=== PATIENT | female | born 1960 | race Caucasian/White ===

== ENCOUNTER 2017-02-16 18:31 | Emergency (ER) | payer MEDICARE, MEDICAID ==
[~2017-02-16] VITALS: Ht 172.7 cm; Wt 93.6 kg
[~2017-02-16 18:31] MED LIST: CEPHALEXIN500 MG PO; HYDROCHLORO25 MG/TAB PO; PERCOCET 5/325M1 TAB PO; TRAMADOL HCL50 MG PO; VICOPROFEN PO
[2017-02-16 19:32] LABS: HEMATOCRIT 41.3 % (37.0-47.0); HEMOGLOBIN 13.9 g/dl (12.0-16.0); IMMATURE GRANULOCYTES 0.4 % (0.0-1.0); MEAN CELL VOLUME 93.2 fL CALC (80.0-100.0); MEAN CORPUSCULAR HGB 31.4 pG CALC (26.0-32.0); MEAN CORPUSCULAR HGB CONC 33.7 g/L CALC (32.0-36.0); NEUT# 9.41 thou/uL (2.00-7.15); RED BLOOD COUNT 4.43 mill/uL (4.20-5.60); RED CELL DISTRI WIDTH 12.4 % (11.5-15.5)
[2017-02-16 19:40] LABS: ALBUMIN 4.5 g/dL (3.2-5.0); ALKALINE PHOSPHATASE 231 u/l (38-126); AMYLASE 47 u/l (30-110); ANION GAP 13 (6-22 (CALC)); BILIRUBIN, TOTAL 5.5 mg/dL (0.0-1.4); BUN 15 mg/dL (7-17); BUN/CREATININE RATIO 18 (12-20 (CALC)); CALCIUM 9.7 mg/dL (8.4-10.2); CARBON DIOXIDE 31 mmol/l (22-30); CHLORIDE 97 mmol/l (95-108); CREATININE 0.8 mg/dL (0.5-1.0); GFR > 60 ML/MIN (>=60 (CALC)); GFR FOR AFR.AMER. > 60 ML/MIN (>=60 (CALC)); GLUCOSE 158 mg/dL (65-105); LIPASE 54 u/l (23-300); POTASSIUM 3.6 mmol/l (3.5-5.1); SGOT/AST 363 u/l (14-36); SGPT/ALT 259 u/l (9-52); SODIUM 138 mmol/l (137-146); TOTAL PROTEIN 7.9 g/dL (6.3-8.2)
[2017-02-16 19:51] LABS: MYOGLOBIN 42 ng/mL (0 - 62)
[2017-02-16 20:55] LABS: URINE BLOOD DIPSTICK SMALL (NEGATIVE); URINE CLARITY CLEAR; URINE COLOR YELLOW; URINE GLUCOSE - DIPSTICK NEGATIVE (NEGATIVE); URINE KETONE NEGATIVE (NEGATIVE); URINE LEUK ESTERASE NEGATIVE (NEGATIVE); URINE NITRITE - DIPSTICK NEGATIVE (Negative); URINE PROTEIN - DIPSTICK NEGATIVE (NEG-TRACE)
[2017-02-16 20:56] LABS: URINE BILIRUBIN - DIPSTICK SMALL (NEGATIVE); URINE SQUAMOUS EPITHELIAL CELL FEW EPI/hpf (0-FEW)
[2017-02-16] MEDS ORDERED: HYDROXYCHLOR200 M1 PO (21:04)
[2017-02-16] MEDS ORDERED: LEVOTHYROXIN88 MC1 PO (21:04)
[2017-02-16] MEDS ORDERED: PRAZOSIN HCL1 M1 PO (21:06)
[2017-02-16] MEDS ORDERED: HYDROCHLOROT12.5 MG PO (21:07)
[2017-02-16] MEDS ORDERED: FAMOTIDINE20 M1 PO (21:08)
[2017-02-16] MEDS ORDERED: MONTELUKAST SOD10 MG PO (21:08)
[2017-02-16] MEDS ORDERED: ESCITALOPRAM OX10 MG PO (21:09)
[2017-02-16] MEDS ORDERED: CLONAZEPAM1 M1 PO (21:09)
[2017-02-16] MEDS ORDERED: BUSPAR10 M1 PO (21:10)
[2017-02-16 21:45] VITALS: BP 99/54
== END 2017-02-16 21:55 | disposition short-term general hospital (02) ==
LOC: ED 18:31
PROVIDERS: Emergency Medicine
DX: K80.50 Calculus of bile duct without cholangitis or cholecystitis without obstruction (principal); R79.89 Other specified abnormal findings of blood chemistry; F31.9 Bipolar disorder, unspecified; F41.9 Anxiety disorder, unspecified; F90.9 Attention-deficit hyperactivity disorder, unspecified type; R07.9 Chest pain, unspecified
CPT/HCPCS: Q9967; S0164

== ENCOUNTER 2017-09-29 07:26 | Day surgery (SDC) | payer MEDICARE, MEDICAID ==
[~2017-09-29 07:26] MED LIST changes: +BUSPAR10 M1 PO; +CLONAZEPAM1 M1 PO; +ESCITALOPRAM OX10 MG PO; +FAMOTIDINE20 M1 PO; +HYDROCHLOROT12.5 MG PO; +HYDROXYCHLOR200 M1 PO; +LEVOTHYROXIN88 MC1 PO; +MONTELUKAST SOD10 MG PO; +PRAZOSIN HCL1 M1 PO; +XYZAL5 MG PO
[2017-09-29 10:08] VITALS: BP 115/61
== END 2017-09-29 09:45 | disposition home or self-care (01) ==
LOC: ENDO 07:26 → ORM 08:45 → ENDO 08:45
PROVIDERS: ATTEND Surgery
PROC: 0DB48ZX Excision of Esophagogastric Junction, Via Natural or Artificial Opening Endoscopic, Diagnostic (ICD-10-PCS; principal; 2017-09-29)
PROC: 0DB78ZX Excision of Stomach, Pylorus, Via Natural or Artificial Opening Endoscopic, Diagnostic (ICD-10-PCS; 2017-09-29)
DX: K21.0 Gastro-esophageal reflux disease with esophagitis (principal); K29.50 Unspecified chronic gastritis without bleeding